=== PATIENT | male | born 2005 | race Caucasian/White ===

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

== ENCOUNTER 2023-01-12 16:37 | Emergency (ER) | payer OTHER, BC | END 2023-01-12 18:26 | disposition home or self-care (01) | LOC: MW.ED 16:37 | DX: S80.12XA Contusion of left lower leg, initial encounter (principal); S80.812A Abrasion, left lower leg, initial encounter; V18.0XXA Pedal cycle driver injured in noncollision transport accident in nontraffic accident, initial encounter; Y92.410 Unspecified street and highway as the place of occurrence of the external cause | CPT/HCPCS: 73590-26-LT; 73590-LT; 99283; 99284 ==